=== PATIENT | female | born 1990 | race Caucasian/White ===

== ENCOUNTER 2023-04-03 15:16 | Emergency (ER) | payer MEDICAID ==
[~2023-04-03] VITALS: Ht 170.2 cm; Wt 82.7 kg
[~2023-04-03 15:16] MED LIST: CLON-529 PO; IBUP-1984 PO; LORA1TAB PO; NO HOME MEDS; ONDA4TAB6 PO; ONDA8TAB6 PO; PANT40TA39 PO; ZOF4T PO
[2023-04-03 16:07] VITALS: BP 137/95; PULSE 94; RESP 16; O2SAT 100
--- NOTE | 2023-04-03 18:16 | NUR ---
pt was seen and treated by provider prior to nursing eval, pt states no known allergies major health issues or current prescriptions. XPLVN
[2023-04-03 18:20] VITALS: TEMP 98.5
== END 2023-04-03 18:21 | disposition home or self-care (01) ==
LOC: ER 15:17
DX: R51.9 Headache, unspecified (principal); F12.10 Cannabis abuse, uncomplicated; F11.10 Opioid abuse, uncomplicated
CPT/HCPCS: 70450; 99284

== ENCOUNTER 2024-12-07 15:45 | Outpatient (CLI) | payer MEDICAID ==
[~2024-12-07] VITALS: Ht 170.2 cm; Wt 95.3 kg
[2024-12-07] MEDS: albuterol 2.5 MG/3 ML nebule NEB ONE (16:19)
[2024-12-07 16:21] VITALS: PULSE 90; RESP 15; O2SAT 95
[2024-12-07 16:34] VITALS: PULSE 93; RESP 16
--- NOTE | 2024-12-10 13:22 | PROCEDURE NOTE - Respiratory ---
Procedure Note-Respiratory Providers to Copies To 1: ANITRA ALLEN Procedure Name: This is a spirometry study dated December 07, 2024. The spirometry study was performed both before and after inhaled bronchodilator. Spirometry measurements: The forced vital capacity is normal. The FEV1 is mildly reduced. The FEV1 ratio is also reduced. Several of the flow rate measurements show reduction. After inhaled bronchodilator there is significant improvement in the FEV1 and the flow rates measurements. Conclusion: This study is abnormal. There is evidence for [id number] obstructive ventilatory defect. The patient shows excellent response to inhaled bronchodilator. These findings suggest a diagnosis of asthma. Continued use of inhaled bronchodilator is recommended. This patient should avoid cigarette s moking and/or vaping. We have no previous studies for comparison. TOBY PATEL MD Dec 10, 2024 13:22
== END 2024-12-07 23:59 | disposition home or self-care (01) ==
LOC: RT 15:45
PROVIDERS: ATTEND Nurse Practitioner Family
DX: R06.00 Dyspnea, unspecified (principal)
CPT/HCPCS: 94060; 94760